=== PATIENT | male | born 1960 | race Two or more races ===

== ENCOUNTER 2022-05-19 11:12 | Emergency (ER) | payer OTHER ==
[~2022-05-19] VITALS: Ht 172.7 cm; Wt 98.6 kg
[2022-05-19 12:12] VITALS: BP 128/77
[2022-05-19 13:33] LABS: Urine Bacteria FEW /hpf (None Seen); Urine Blood 2+ /uL (Negative); Urine Budding Yeast OCCASIONAL /hpf (None Seen); Urine Mucus FEW (None Seen); Urine Specific Gravity 1.019 (1.001-1.035); Urine WBC 1170 /hpf (0 - 3); Urine WBC Clumps PRESENT /hpf (None Seen)
[2022-05-19] MEDS ORDERED: cefTRIAXone SOD 1,000 MG VL IM ONE (13:45)
[2022-05-19] MEDS ORDERED: LIDOCAINE 1% HCL (LOCAL ANESTH.) INJ 20ML MDV ONE (13:46)
[2022-05-19] MEDS ORDERED: PHEN200T16 PO (13:46)
[2022-05-19] MEDS ORDERED: CIPR-173 PO (13:46)
== END 2022-05-19 14:13 | disposition home or self-care (01) ==
LOC: ER 11:19
DX: N39.0 Urinary tract infection, site not specified (principal)
CPT/HCPCS: 81001; 96372; 99283; J0696; J2001